=== PATIENT | male | born 2000 | race Two or more races ===

== ENCOUNTER 2023-09-09 16:30 | Emergency (ER) | payer BC, OTHER ==
[~2023-09-09] VITALS: Ht 177.8 cm; Wt 96.0 kg
[2023-09-09 16:43] VITALS: BP 149/90; PULSE 100; RESP 16; O2SAT 97
== END 2023-09-09 18:44 | disposition left against medical advice (07) ==
LOC: ER 16:30
DX: S61.012A Laceration without foreign body of left thumb without damage to nail, initial encounter (principal); Z53.21 Procedure and treatment not carried out due to patient leaving prior to being seen by health care provider; W26.0XXA Contact with knife, initial encounter; Y93.89 Activity, other specified; Y92.89 Other specified places as the place of occurrence of the external cause; Y99.8 Other external cause status